=== PATIENT | female | born 1940 | race African-American/Black ===

== ENCOUNTER → 2021-06-26 | Outpatient (CLI) | payer MEDICAID, OTHER ==
--- NOTE | 2021-06-26 13:50 | KCIC ---
MR LUMBAR SPINE WO -[id number], MRI THORACIC SPINE WO History: Reason: THORACIC AND LUMBAR BACK PAIN / Spl. Instructions: CHRONIC MIDDLE AND LOWER BACK KARL N / History: Prior br CA w/Rx Tx. Pain in middle thoracic and in lower back for yrs. Technique: Multiplanar, multi sequential MR imaging was performed of the thoracic and lumbar spine. Comparison: None Findings: Thoracic spine MRI: Motion degraded evaluation. Normal vertebral body height and alignment. No fracture. Mild degenerative disc changes. Small disc protrusions. No significant canal narrowing. No significan t neuroforaminal narrowing. Partially imaged cervical spondylosis. Lumbar spine MRI: Normal vertebral body height and alignment. No fracture. Conus terminates at the normal location. No evidence of nerve root clumping. Sacral Tarlov cysts. Left renal cyst. Hepatic cysts. L1-L2: Small disc bulge. Mild facet arthropathy. No canal or neuroforaminal narrowing. L2-L3: Small disc bulge. Mild facet arthropathy. No canal or neuroforaminal narrowing. L3-L4: Small disc bulge. Moderate facet arthropathy. No canal narrowing. Mild subarticular recess na rrowing. No neuroforaminal narrowing. L4-L5: Small broad-based disc bulge. Moderate to advanced facet arthropathy. Mild subarticular reces s narrowing. No canal narrowing. Mild bilateral neuroforaminal narrowing. L5-S1: Right paracentral/subarticular disc protrusion with annular fissure. Subarticular recess narr owing greatest the right. Abutment of the descending S1 nerve roots, right greater than left. No genesis l narrowing. Moderate to advanced facet arthropathy. Mild bilateral neuroforaminal narrowing. Impression: Lumbar spine MRI: 1. Multilevel lumbar spondylosis most prominent L4-5 and L5-S1. 2. L5-S1 right subarticular recess narrowing with abutment of the descending right S1 nerve root. Co rrelate for radiculopathy. Thoracic spine MRI: 1. Mild thoracic spondylosis. Electronically signed by: Barry Anaya DO (06/26/2021 1:48 PM) [facility]
== END ==
LOC: KCIC MRI 09:17
PROVIDERS: ATTEND Family Medicine
DX: M47.814 Spondylosis without myelopathy or radiculopathy, thoracic region (principal); G96.191 Perineural cyst; M47.817 Spondylosis without myelopathy or radiculopathy, lumbosacral region; M51.27 Other intervertebral disc displacement, lumbosacral region; M51.37 Other intervertebral disc degeneration, lumbosacral region; M48.07 Spinal stenosis, lumbosacral region; M48.8X6 Other specified spondylopathies, lumbar region; M51.24 Other intervertebral disc displacement, thoracic region
CPT/HCPCS: 72146; 72148